=== PATIENT | male | born 1965 | race Caucasian/White ===

== ENCOUNTER 2024-12-18 07:52 | Outpatient (CLI) | payer OTHER, SELFPAY ==
--- OUTSIDE RECORDS SUMMARY | 2024-12-18 07:56 | XMS_ITS | Patient Health Record ---
Author Organization [facility] Address [address] [place] [address] Care Team Providers Care Residential Supervisor Name Role Phone Federico JULES, Darrel Primary Care Provider Un available Dre Garber Unavailable [phone] Carol Herrera Unavailable [phone] Stephania Doss Unavailable [phone] Allergies Allergen (clinical drug ingredient) Drug/Non Drug Allergy documented on EMR Reaction Allergy Type Onset Date Status smallpox vaccine (uncoded) pt. states gave him cowpox Allergy Active Reason For Referral No Information Medications Medication SIG (Take, Route, Frequency, Duration) Notes Start Date End Date Status amLODIPine Besylate 5 MG 1/2 tablet Oral ly Once a day as needed; Duration: 90 days Active Testosterone 30 MG/ACT 1 pump to skin in the morning to the underarm Transdermal Once a day Active Losartan Potassium 50 MG Take 1 tablet b y mouth twice daily; Duration: 90 Active Metoprolol Tartrate 25 MG Take 1 tablet by mouth twice daily with food; Duration: 90 Active Levothyroxine Sodium 50 MCG 1 tablet in the morning on an empty stomach Orally Once a day; Duration: 30 day(s) Active Pantoprazole Sodium 40 MG 1 tablet Orall y Once a day; Duration: 30 day(s) Active Atorvastatin Calcium 20 MG 1 tablet Oral ly Once a day; Duration: 90 days Active Social History Tobacco Use: Social History Observation Description Date Details (start date - stop date) Never Smoker NA - NA Tobacco Use/Smoking Question Answer Notes Are you a nonsmoker Additional Findings: Tobacco Non-User Current no n-smoker Alcohol Screen (Audit-C) Question Answer Notes Did you have a drink containing alcohol in the p ast year? 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 ADLs Smoking: no Alchohol: no Diet: low salt Beverages: 3 cups of coffee morning 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 ADLs Smoking: no Alchohol: no Diet: low salt Beverages: 3 cups of coffee morning 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 ADLs Smoking: no Alchohol: no Diet: low salt Beverages: 3 cups of coffee morning 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 ADLs Smoking: no Alchohol: no Diet: low salt Beverages: 3 cups of coffee morning 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 ADLs Smoking: no Alchohol: no Diet: low salt Beverages: 3 cups of coffee morning 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 ADLs Smoking: no Alchohol: no Diet: low salt Beverages: 3 cups of coffee morning 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 ADLs Smoking: no Alchohol: no Diet: low salt Beverages: 3 cups of coffee morning 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 ADLs Smoking: no Alchohol: no Diet: low salt Beverages: 3 cups of coffee morning 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 ADLs Smoking: no Alchohol: no Diet: low salt Beverages: 3 cups of coffee morning 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 ADLs Smoking: no Alchohol: no Diet: low salt Beverages: 3 cups of coffee morning 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 ADLs Problems Problem Type SNOMED Code ICD Code Onset Dates Problem Status W/U Status Risk Notes Problem Hypertension (12810891) Hypertension, unspecified (401.9) Active confirmed Problem Essential hypertension (38831774) Essential (primary) hypertension (I10) Active confirmed Problem Tachycardia (0207599) Tachycardia, unspecified (R00.0) Active confirmed Problem Chest pain (97825897) Other chest pain (R07.89) Active confirmed Vital Signs Heart Rate 62 /min 03/26/2024 Blood pressure diastolic 72 mm Hg 03/26/2024 Height 6ft in 03/26/2024 Blood pressure systolic 138 mm Hg 03/26/2024 Weight 229 lbs 03/26/2024 BMI 31.05 kg/m2 03/26/2024 Encounters Encounter Location Date Provider Diagnosis [facility] [place] [address] [place] [address] 03/26/2024 Carol Herrera Essential (primary) hypertension I10 and Tachycardia, unspecified R00.0 [facility] [place] [address] [place] [address] 04/24/2024 [facility] [place] [address] [place] [address] 05/12/2024 Stephania Doss [facility] [place] [address] [place] [address] 11/19[facility]2024 [facility] Essential (primary) hypertension I10 Assessments Encounter Date Diagnosis (ICD Code) Assessment Notes Treatment Notes Treatment Clinical Notes Section Notes 03/26/2024 Essential (primary) hypertension (ICD-10 - I10) Controlled. Would continue off amlodipine for now and continue to monitor blood pressure readings. Continue present medications. Patient Educated with: High Blood Pressure (The Basics).pdf (High Blood Pressure (The Basics).pdf) 03/26/2024 Tachycardia, unspecified (ICD-10 - R00.0) -2 week MCT event monitor 08/03-08/17/19: underlying NSR with avg 82 bpm, few APCs, no atrial fibrillation or significant ventricular pauses No recent prolonged palpitations. Continue metoprolol. 11/19/2024 Essential (primary) hypertension (ICD-10 - I10) Plan Of Treatment Next Appt Details Provider Name:Stephania dodd, 03/27/2025 09:00:00 AM, [address], [place], [address], Insurance Providers Payer Name Payer Address Payer Phone Subscriber Number Group Number Insured Name Patient Relationship to Insured Coverage Start Date Coverage End Date [employer] [id number] [place] [address] [id number] Frederick Munson Self - patient is the insured Medical (General) History Medical History History ICD Code GERD HTN- coronary angiography August 2016 nonobstr uctive disease he uses CPAP
--- OUTSIDE RECORDS SUMMARY | 2024-12-18 07:56 | XMS_ITS | Encounter Summary ---
Author Organization [facility] Address [address] [facility] [place] [address] Care Team Providers Care Migratory Farm Hand Name Role Phone Darrel Caballero MD Primary Care Provider Genny Kent DO Unavailable Encounter Details Date Type Department Care Team (Late st Contact Info) Description 05/26/2019 Ophth Exam [facility] [address] [place] [address] Ever Carl MD [address] [facility] DEPT OF OPHTHALMOLOGY [place], [place] Social History Tobacco Use Types Packs/Day Years Used Date Smoking Tobacco: Never Smokeless Tobacco: Never Alcohol Use Standard Drinks/Week Comments Yes 0 (1 standard drink = 0.6 oz pur e alcohol) occ Sex and Gender Information Value Date Recorded Sex Assigned at Not on file Legal Sex Male 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 Answer Date of Assessment Author No 05/24/2019 4:55 AM Nadiya Cody APRN-CNP * Is person blind or have serious difficulty seeing? Answer Date of Assessment Author No 05/24/2019 4:55 AM Nadiya Cody APRN-CNP * Does person have serious difficulty walking/climbing stairs? Answer Date of Assessment Author No 05/24/2019 4:55 AM BLENDER/BRAZE APPLICATOR Kohlmeier , Nadiya, CUSTOMER BUSINESS MANAGER-MULTIPLE PRESSURE RIVETER OPERATOR * Does person have difficulty dressing/bathing? Answer Date of Assessment Author No 05/24/2019 4:55 AM Nadiya Cody APRN-CNP * Does person have difficulty doing errands alone? Answer Date of Assessment Author No 05/24/2019 4:55 AM Nadiya Cody APRN-CNP documented as of this encounter Mental Status * Does person have difficulty concentrating/remembering/making decisions? Answer Entry Date Author No 05/24/2019 4:55 AM Nadiya Cody APRN-CNP documented in this encounter Plan of Treatment Not on file documented as of this encounter Visit Diagnoses Not on filedocumented in this encounter Additional Health Concerns Infection Onset Date Last Indicated Resolved Time COVID-19 Under Investigation 01/06/2020 01/06/2020 01/07/2020 10:37 PM CDT COVID-19 Confirmed 01/06/2020 01/06/2020 0 4:33 AM CDT COVID-19 Under Investigation 05/23/2021 05/23/2021 05/24/2021 12:25 PM BLENDER/BRAZE APPLICATOR COVID-19 Confirmed 05/23/2021 05/23/2021 2 4:33 AM BLENDER/BRAZE APPLICATOR documented as of this encounter Care Teams Migratory Farm Hand Relationship Specialty Start Date End Date Darrel Caballero MD [address] [phone] PCP - General Internal Medicine 07/10/14 Genny Ketn DO [address] [address] Fellow Internal Medicine 06/25/19 documented as of this encounter
--- OUTSIDE RECORDS SUMMARY | 2024-12-18 07:56 | XMS_ITS | Clinical Summary ---
Author Organization [facility] Address [address] [place] [address] Care Team Providers Care Information Systems Architect Name Role Phone Darrel Caballero MD Primary Care Provider Genny Kent DO Unavailable Source Comments [facility],non-owned Affiliates and Associated Physician Practices is amultiple site organization consisting of ambulatory clinics and hospital sitesin [place], [place], [place] and [place]. This disclosure is being madepursuant to the Care Everywhere program and may not contain all information available regarding this patient. Last updated 18.[facility] [employer] Allergies Active Allergy Reactions Criticality Noted Date Comments Small Pox Vaccine Other High 07/13/2014 REACTED-RECEIVED ANGELES POX Medications * Be aware that medications may not be up to date on this document. Alwaysverify current medications with the patient. losartan (COZAAR) 50 MG tablet Take 1 (one) tablet by mouth once daily Active pantoprazole EC (PROTONIX) 40 MG tablet Take 1 tablet by mouth once daily 30 tablet 9 Active acetaminophen (TYLENOL) 500 MG tablet Take 1 (one) tablet by mouth every 4 hours as needed for Fever or Pain Maximum allowable Acetaminophen amount = 4 Grams (4000 mg) / 24 hours. Active amLODIPine (Norvasc) 5 MG tablet 1 TABLET ONCE DAILY IF BLOOD PRESSURE IS GREATER THAN 130/85 1 Active metoprolol tartrate IR (Lopressor) 25 MG tablet Take 1 (one) tablet by mouth 2 times daily Active levothyroxine (Synthroid) 75 MCG tablet Take 1 (one) tablet by mouth daily before breakfast Active hydrocortisone (Cortef) 5 MG tablet Take 1 (one) tablet by mouth once daily as needed Active glycopyrrolate (Robinul) 1 MG tablet Take 1 (one) tablet by mouth once daily as needed Active atorvastatin (Lipitor) 20 MG tablet Take 1 (one) tablet by mouth at bedtime Active Testosterone (Axiron) 30 MG/ACT solution Apply to affected area once daily Apply 2 pumps once daily Active azithromycin (Zithromax) 250 MG tabletIndicatio ns:Upper respiratory tract infection, unspecified type 2 tablets on day 1, 1 tablet daily on days 2-5. 6 tablet 4 Active Additional Information Patient not taking.Reported on 04/30/2024 cephalexin (Keflex) 500 MG capsuleIndicati ons:Laceration of left thumb without foreign body without damage to nail, initial encounter Take 1 (one) capsule by mouth 3 times daily 30 capsule Active Additional Information Patient not taking.Reported on 05/12/2024 Active Problems Problem Noted Date Diagnosed Date Other chest pain 10/10/2022 Lightheadedness 10/10/2022 Pituitary mass 05/22/2019 Acute pansinusitis 05/21/2019 Acute nonintractable headache 05/21/2019 Coronary artery disease, non-occlusive 9 Dyslipidemia 07/03/2018 Benign hypertension 07/03/2018 Preoperative examination Resolved Problems Problem Noted Date Diagnosed Date Resolved Date Hyponatremia 05/21/2019 05/27/2019 Encounters Date Type Department Care Team Description 09/18/2024 2:30 PM CDT - 09/18/2024 11:59 PM CDT Hospital Encounter [facility] Health Imaging Services - CT Scan [address] [id number] Darrel Caballero MD Discharge Disposition: Home or Self Care from Last 3 Months Immunizations Immunization Administration Dates Next Due DPT 11/16/1990 TDAP (7yrs+) 04/30/2024 Family History Medical History Relation Name Comments Heart Disease Father Hypertension Maternal Grandfather Hypertension Maternal Grandmother Hypertension Mother Relation Name Status Comments Father Alive Maternal Grandfather Maternal Grandmother Mother Alive Paternal Grandfather Paternal Grandmother Sister 1 Alive Sister 2 Alive Social History Tobacco Use Types Packs/Day Years Used Date Smoking Tobacco: Never Smokeless Tobacco: Never Tobacco Cessation:Counseling Given: Not Answered Alcohol Use Standard Drinks/Week Comments Yes 0 (1 standard drink = 0.6 oz pur e alcohol) rare AUDIT-C Answer Date Recorded Q1: How often do you have a drink containing alcohol? Never 10/10/2022 Q2: How many drinks containi ng alcohol do you have on a typical day when you are drinking? Patient does not drink Q3: How often do you have si x or more drinks on one occasion? Never 10/10/2022 PHQ-2 Answer Date Recorded Patient Health Questionnaire-2 Score 0 05/12/2024 Sex and Gender Information Value Date Recorded Sex Assigned at Not on file Legal Sex Male 6:31 PM [employer] Gender Identity Not on file Sexual Orientation Not on file Last Filed Vital Signs Vital Sign Reading Time Taken Comments Blood Pressure 138/78 05/12/2024 8:35 AM [employer] Pulse 72 05/12/2024 8:35 AM [employer] Temperature 36.8 C (98.3 F) 05/12/2024 8:35 AM [employer] Respiratory Rate 18 05/17/2023 9:35 AM [employer] Oxygen Saturation 98% 05/12/2024 8:35 AM [employer] Inhaled Oxygen Concentration 21% 10/11/2022 5 :01 AM CDT Weight 104.2 kg (229 lb 12.8 oz) 04/30/2024 5:03 PM [employer] Height 182.9 cm (6') 05/17/2023 7:41 AM [employer] Body Mass Index 31.17 05/17/2023 7:41 AM [employer] Plan of Treatment Health Maintenance Due Date Last Done Comments COLOGUARD (AGES 45-75) - COLON CA SCREENING 1967 CT COLONOGRAPHY - COLON CA SCREENING 1967 FIT - COLON CA SCREENING 1967 FLEX SIG - COLON CA SCREENING 1967 HIV SCREENING 12/10/1982 HEPATITIS C SCREENING 12/06/1985 HEPATITIS B VACCINE (1 of 3 - 19+ 3-dose series) 12/10/1986 PNEUMOCOCCAL VACCINE 50+ (1 of 1 - PCV) 12/10/2017 ZOSTER VACCINE (1 of 2) 12/10/2017 COVID-19 VACCINE ( season) 2024 08/07/2020, 07/10/2020 DEPRESSION SCREENING 05/14/2024 02/29/2024 INFLUENZA VACCINE (#1) 2025 SCREENING FOR DIABETES 03/21/2026 3, 03/21/2023, 03/21/2023, Additional history exists COLON MONITORING 02/07/2029 02/07/2019, 09/2015, 12/17/2015 COLONOSCOPY - COLON CA SCREENING 02/07/2029 02/07/2019, 12/17/2015, 12/17/2015 Colorectal Cancer Screening 02/07/2029 DTAP/TDAP/TD VACCINES (3 - Td or Tdap) 04/30/2034 04/30/2024, 11/16/1990 HIB VACCINE Aged Out No longer eligi ble based on patient's age to complete this topic HPV VACCINE Aged Out No longer eligi ble based on patient's age to complete this topic MENINGOCOCCAL (Group B) VACCINE SHARED DECISION-MAKING Aged Out No longer eligible based on patient's age to complete this topic MENINGOCOCCAL GROUPS A/C/Y/W VACCINE Aged Out No longer eligible based on patient's age to complete this topic Procedures Procedure Name Priority Date/Time Associated Diagnosis Comments CT ABDOMEN PELVIS WWO CONTRAST STAT 09/18/2024 3:29 PM CDT RLQ abdominal pain Nausea Diarrhea in adult patient BASIC METABOLIC PANEL (CALCIUM TOTAL) AM Draw 10/11/2022 2:16 AM CDT Other chest pain Lightheadedness ENDOSCOPY, COLON, DIAGNOSTIC Routine 12/17/2015 7:54 AM CDT from Last 3 Months or Most Recently Relevant to Health Maintenance Results * CT [place] [id number] (09/18/2024 3:29 PM CDT) Anatomical Region Laterality Modality Abdomen, Pelvis Computed Tomogra phy 09/18/2024 3:51 PM CDT Impressions 09/18/2024 4:07 PM CDT IMPRESSION: 1.With and without contrast CT scan abdomen pelvis shows this to be a nonfasting study. There is no bowel or urinary obstructive or inflammatory process evident. 2.No generalized colonic wall thickening to give CT findings to suggest colitis. This examination is not sensitive in assessment process for mucosal pathology. Edited by Trudy Jeffries on 09/18/2024 4:06 PM 95 > Interpreting Provider: Swapnil Little MD on 09/18/2024 4:07 PM Narrative 09/18/2024 4:07 PM CDT 95 PROCEDURE: CT ABDOMEN PELVIS WWO CONTRAST DATE/TIME OF EXAM: 09/18/2024 3:30 PM CLINICAL INFORMATION: None relevant/not provided if blank. Indication: R10.31: RLQ abdominal pain R11.0: Nausea R19.7: Diarrhea in adult patient Additional History: COMPARISON: 02/04/2022. TECHNIQUE: CT of the abdomen and pelvis without contrast was performed utilizing standard protocol. CT dose reduction technique was used, including Automated Exposure Control. Oral contrast had been administered. IV CONTRAST: IOPAMIDOL 61% IV SOLN: 95 mL FINDINGS: The lung bases are clear. There is no pericardial or pleural effusion. Nonfasting stomach. No pneumoperitoneum. There may be a thin pericardial calcification adjacent to the right atrium suggesting prior pericardial inflammatory process. No pericardial fluid. No calcified gallstones or gallbladder wall thickening. No generalized gastric wall thickening. This examination is not sensitive in assessment process for mucosal pathology. No peripancreatic inflammatory change. No pancreatic tail atrophy. No adrenal enlargement. The kidneys show no hydronephrosis. No stone down the pathway of either ureter. No retroperitoneal adenopathy. No small bowel distention or small bowel transition zone. No generalized small bowel wall thickening. Small pericecal lymph nodes. The appendix is normal in caliber. No pericolonic inflammatory change. Postcontrast images show the kidneys to enhance normally. The spleen is normal in length. No discrete liver mass lesion. No retroperitoneal adenopathy. No mesenteric adenopathy. Delayed images show no hydronephrosis. No hydroureter. No extravasated colonic contrast material. In the pelvis, the bladder wall thickness is felt normal for the degree of decompression. Mild prostatic hypertrophy. No gross rectal wall thickening. No inguinal, obturator, or iliac chain adenopathy. Lumbar facet arthrosis. No aggressive appearing bone destructive process. No pars defects. Procedure Note Swapnil Little MD - 09/18/2024 95 PROCEDURE: CT ABDOMEN PELVIS WWO CONTRAST DATE/TIME OF EXAM: 09/18/2024 3:30 PM CLINICAL INFORMATION: None relevant/not provided if blank. Indication: R10.31: RLQ abdominal pain R11.0: Nausea R19.7: Diarrhea in adult patient Additional History: COMPARISON: 02/04/2022. TECHNIQUE: CT of the abdomen and pelvis without contrast was performed utilizing standard protocol. CT dose reduction technique was used, including Automated ExposureControl. Oral contrast had been administered. IV CONTRAST: IOPAMIDOL 61% IV SOLN: 95 mL FINDINGS: The lung bases are clear. There is no pericardial or pleural effusion. Nonfasting stomach. No pneumoperitoneum. There may be a thin pericardial calcificationadjacent to the right atrium suggesting prior pericardial inflammatory process.No pericardial fluid. No calcified gallstones or gallbladder wall thickening. No generalized gastric wall thickening. This examination is not sensitive in assessment process for mucosal pathology. No peripancreatic inflammatory change. No pancreatic tail atrophy. No adrenal enlargement. The kidneys show no hydronephrosis. No stone down the pathway of either ureter. No retroperitoneal adenopathy. No small bowel distention or small bowel transition zone. No generalized small bowel wall thickening. Small pericecal lymph nodes. The appendix is normal in caliber. No pericolonic inflammatory change. Postcontrast images show the kidneys to enhance normally. The spleen is normal in length. No discrete liver mass lesion. No retroperitoneal adenopathy. No mesenteric adenopathy. Delayed images show no hydronephrosis. No hydroureter. No extravasated colonic contrast material. In the pelvis, the bladder wall thickness is felt normal for the degreeof decompression. Mild prostatic hypertrophy. No gross rectal wallthickening. No inguinal, obturator, or iliac chain adenopathy. Lumbar facet arthrosis. No aggressive appearing bone destructiveprocess. No pars defects. IMPRESSION: 1.With and without contrast CT scan abdomen pelvis shows this to be a nonfasting study. There is no bowel or urinary obstructive orinflammatory process evident. 2.No generalized colonic wall thickening to give CT findings to suggest colitis. This examination is not sensitive in assessment process for mucosal pathology. Edited by Trudy Jeffries on 09/18/2024 4:06 PM 95 > Interpreting Provider: Swapnil Little MD on 09/18/2024 4:07 PM us Chelsea Caballero [employer] ASSOCIATE-EMB[employer]ED FIRMWARE DEVELOPER CT ORDERABLES F inal Result * (ABNORMAL) BASIC METABOLIC PANEL (CALCIUM TOTAL) (10/11/2022 2:16 AM CDT) [facility] Glucose 109 70 - 125 mg/dL 10/11/2022 2:59 AM CDT [facility] Sodium 138 136 - 145 mmol/L 10/11/2022 2:59 AM CDT [facility] Potassium 3.6 3.4 - 5.1 mmol/L 10/11/2022 2:59 AM CDT [facility] Chloride 108(H) 98 - 107 mmol/L 10/11/2022 2:59 AM CDT [facility] CO2 22 22 - 29 mmol/L 10/11/2022 2:59 AM CDT [facility] Calcium 8.53 8.4 - 10.2 mg/dL 10/11/2022 2:59 AM CDT [facility] Anion Gap 12 6 - 16 mmol/L 10/11/2022 2:59 AM CDT [facility] BUN 13.0 8.4 - 25.7 mg/dL 10/11/2022 2:59 AM CDT [facility] Creatinine 1.14 0.72 - 1.25 mg/dL 10/11/2022 2:59 AM CDT [facility] eGFR 76(L) >90 mL/min/1.7 3m2 10/11/2022 2:59 AM CDT [facility] Comment:The GFR result was c alculated using the updated CKD-EPI Creatinine Equation (2020). Blood BLOOD SPECIMEN / Unknown Lab Venipuncture / Unknown 10/11/2022 2:16 AM CDT 10/11/2022 2:36 AM CDT Grey Purdy MD LAB - CHEMISTRY ORDERABLES Final Result Performing Organization Address City/State/[facility] Co de Phone Number [facility] [address] [place] [address], [facility] from Last 3 Months or Most Recently Relevant to Health Maintenance Insurance [place] [id number] [facility] [employer] [facility] GENERIC Member Subscriber Plan / Payer (Ef fective 2024-Present) Name:Frederick Munson Member ID:Not on file Relation to Subscriber:Employee Name:[employer] Subscriber ID:[id number] (Work) Address: [address] [place] [address] Payer ID:Not on file Group ID:Not on file Type:Worker's Comp Address: [address] [address] [place] [address] Advance Directives * Full Code (Latest Code Status on File) Date Activated Date Inactivated Comments 10/10/2022 8:17 PM 10/11/2022 4:32 PM * Full Code Date Activated Date Inactivated Comments 05/24/2019 12:10 AM 05/27/2019 4:28 PM * Full Code Date Activated Date Inactivated Comments 05/21/2019 9:49 PM 05/23/2019 11:53 PM * Full Code Date Activated Date Inactivated Comments 09/08/2016 8:33 AM 09/08/2016 1:09 PM * Full Code Date Activated Date Inactivated Comments 09/08/2016 7:14 AM 09/08/2016 8:33 AM Care Teams Information Systems Architect Relationship Specialty Start Date End Date Darrel Caballero MD [address] [address] PCP - General Internal Medicine 07/10/14 Genny Kent DO [address] [address] Fellow Internal Medicine 06/25/19
--- OUTSIDE RECORDS SUMMARY | 2024-12-18 07:56 | XMS_ITS | Clinical Summary ---
Author Organization [facility] Address [address] [place] [address] Care Team Providers Care Health Care Assistant Name Role Phone Darrel Caballero MD Primary Care Provider [phone] Allergies Active Allergy Reactions Criticality Noted Date Comments Smallpox Virus Vaccine Live Other (see comment) High 07/13/2014 REACTED-RECEIVED ANGELES POX Medications pantoprazole EC (PROTONIX) 40 MG tablet Take 1 tablet (40 mg total) by mouth daily. 2 Active metoprolol tartrate (LOPRESSOR) 25 MG tablet Take 1 tablet (25 mg total) by mouth 2 (two) times daily with meals. Active losartan (COZAAR) 50 MG tablet Take 1 tablet (50 mg total) by mouth 2 (two) times daily. Active hydroCHLOROthia zide (MICROZIDE) 12.5 MG tablet Take 1 tablet (12.5 mg total) by mouth as needed. 3 Active atorvastatin (LIPITOR) 20 MG tablet Take 1 tablet (20 mg total) by mouth nightly at bedtime. Active amLODIPine (NORVASC) 5 MG tablet TAKE 1/2 TABLET BY MOUTH ONCE DAILY NEEDED 3 Active glycopyrrolate (ROBINUL) 1 MG tablet Take 1 tablet (1 mg total) by mouth as needed. 3 Active Testosterone 30 MG/ACT SolutionIndicat ions:Pituitary adenoma (CMS/HCC HHS/HCC),Hypogo nadism in male APPLY 2 PUMPS TOPICALLY ONTO SKIN ONCE DAILY 75 mL 3 3 Active Active Problems Problem Noted Date Diagnosed Date Hypothyroidism (acquired) 09/18/2022 Secondary adrenal insufficiency ([facility]) 2022 Hypogonadism in male 09/18/2022 Primary hypertension 03/08/2020 Pituitary adenoma ([facility]/HCC [facility]) 11/21/2019 Coronary artery disease, non-occlusive 9 Dyslipidemia 07/03/2018 Resolved Problems Problem Noted Date Diagnosed Date Resolved Date Hyperlipidemia 03/08/2020 09/18/2022 Pituitary mass ([facility]) 05/22/201912/2022 Overview (09/15/2022): Added automatically from request for surgery [id number] Acute nonintractable headache 05/21/2019 09/18/2022 Acute pansinusitis 05/21/2019 Benign hypertension 07/03/2018 09/19/19 23 Immunizations Immunization Administration Dates Next Due Dtp 11/16/1990 MODERNA COVID-19 (12+) MRNA, LNP-S, PF, 100 MCG/ 0.5 ML DOSE 08/07/2020,07/10/2020 Family History Medical History Relation Comments Heart Disease Father Relation Status Comments Father Social History Tobacco Use Types Packs/Day Years Used Date Smoking Tobacco: Never Smokeless Tobacco: Never Tobacco Cessation:Counseling Given: No Alcohol Use Standard Drinks/Week Comments Never 0 (1 standard drink = 0.6 oz pur e alcohol) PHQ-2 Answer Date Recorded Patient Health Questionnaire-2 Score 0 09/18/2022 Sex and Gender Information Value Date Recorded Sex Assigned at Not on file Legal Sex Male 4:15 PM [employer] Gender Identity Not on file Sexual Orientation Not on file Last Filed Vital Signs Vital Sign Reading Time Taken Comments Blood Pressure 126/77 03/28/2023 12:13 PM [employer] Pulse 66 03/28/2023 10:50 AM [employer] Temperature 36.6 C (97.8 F) 09/18/2022 3:37 PM CDT Respiratory Rate 20 09/18/2022 3:37 PM CDT Oxygen Saturation 98% 03/28/2023 10: 50 AM [employer] Inhaled Oxygen Concentration - - Weight 106.9 kg (235 lb 9.6 oz) 023 10:50 AM [employer] Height 182.9 cm (6') 09/18/2022 3:37 PM CDT Body Mass Index 31.95 09/18/2022 3:37 PM CDT Plan of Treatment Health Maintenance Due Date Last Done Comments ASCVD Statin 1965 Colorectal Cancer Screening Colonoscopy (10 Years) 1967 Annual Physical 12/10/1970 Hepatitis C 12/10/1985 Hepatitis B Vaccines (1 of 3 - 19+ 3-dose series) 12/10/1986 Pneumococcal Vaccine: 50+ Years (1 of 2 - PCV) 12/10/1986 DTaP, Tdap and Td Vaccines ( 1 - Tdap) 11/17/1990 11/16/1990 Zoster Vaccines (1 of 2) 12/10/2017 COVID-19 Vaccine (3 - 2023-2 5 season) 2024 08/07/2020, 07/10/2020 ASCVD LDL 03/21/2024 03/21/2023 Meningococcal B Vaccine Aged Out No l onger eligible based on patient's age to complete this topic Meningococcal Vaccine Aged Out No rodolfo pamela eligible based on patient's age to complete this topic RSV Immunizations Under 20 Months Aged Out No longer eligible b ased on patient's age to complete this topic Procedures Procedure Name Priority Date/Time Associated Diagnosis Comments LIPID PANEL Routine 03/21/2023 6:56 AM [employer] Pituitary adenoma from Last 3 Months or Most Recently Relevant to Health Maintenance Results * (ABNORMAL) LIPID PANEL (03/21/2023 6:56 AM [employer]) CHOLESTEROL 153 <200 MG/DL 03/21/2023 8:21 AM [facility] TRIGLYCERIDES 172(H) <150 MG/DL 03/21/2023 8:21 AM [facility] HDL 51 >40.0 MG/DL 03/21/2023 8:21 AM [facility] LDL (CALCULATED) 68 <100 MG/DL 03/21/2023 8:21 AM [facility] NON HDL CHOLESTEROL 102 <130 MG/DL 03/21/2023 8:21 AM [employer] [facility] Comment: NOTE: WHEN THE TRIGLYCERIDES ARE >200 mg/dL, NON HDL C IS A SECONDARY TARGET OF THERAPY, WITH A GOAL 30 mg/dL HIGHER THAN THE IDENTIFIED LDL C GOAL. CHOL/HDL RATIO 3.0 0.0 - 4.5 03/21/2023 8:21 AM [employer] [facility] VLDL CALCULATION 34 5 - 55 MG/DL 03/21/2023 8:21 AM [employer] [facility] LIPID INTERPRETATION 03/21/2023 8:21 AM [employer] [facility] Comment: NIH CONCENSUS REPORT RECOMMENDATIONS: ADULT CHILD LOW RISK: CHOLESTEROL <200 <170 TRIGLYCERIDE <150 --- HDL >=60 --- LDL <100 <110 BORDERLINE: CHOLESTEROL 200-239 170-199 TRIGLYCERIDE 150-199 --- HDL 40-59 --- LDL 100-159 110-129 HIGH RISK: CHOLESTEROL >=240 >=200 TRIGLYCERIDE >=200 --- HDL <40 --- LDL >=160 >=130 03/21/2023 6:56 AM [employer] Dre Wen MD LABORATORY Final Result [facility] [address] [place] [address], from Last 3 Months or Most Recently Relevant to Health Maintenance Insurance [employer] Care Teams Health Care Assistant Relationship Specialty Start Date End Date Darrel Caballero MD [address] [address] PCP - General INTERNAL MEDICINE 09/18/22
--- OUTSIDE RECORDS SUMMARY | 2024-12-18 07:56 | XMS_ITS | Patient Health Record ---
Author Organization [facility] Address [address] [place] [address] Care Team Providers Care Load Builder Name Role Phone Darrel Caballero MD Primary Care Provider Un available Krystyna Hdz Unavailable [phone] Allergies No Known Allergies Reason For Referral No Information Medications Medication SIG (Take, Route, Frequency, Duration) Notes Start Date End Date Status Metoprolol Tartrate 25 MG Oral; Duration: 90 Days Active Euthyrox 75 MCG Oral; Duration: 90 Days Active Losartan Potassium 50 MG TAKE 1 TABLET B Y MOUTH TWICE DAILY Oral; Duration: 90 Days Active amLODIPine Besylate 5 MG TAKE 1/2 (ONE-H FPC) TABLET BY MOUTH ONCE DAILY FOR 7 DAYS, THEN INCREASE TO 1 TABLET ONCE DAILY IF BLOOD PRESSURE IS GREATER THAN 130/85 Oral; Duration: 90 Days Active Pantoprazole Sodium 20 MG TAKE 1 TABLET BY MOUTH ONCE DAILY NEEDED Oral; Duration: 90 Days Active Atorvastatin Calcium 20 MG TAKE 1 TABLET BY MOUTH ONCE DAILY AT BEDTIME Oral; Duration: 90 Days Active Hydrocortisone Activ e Plan Of Treatment Pending Test Test Name Order Date X ray : Ankle, left 2 views 11/09/2022 X ray : Foot, left 3v 11/09/2022 Insurance Providers Payer Name Payer Address Payer Phone Subscriber Number Group Number Insured Name Patient Relationship to Insured Coverage Start Date Coverage End Date [employer] PPO [address] [place], [place] [id number] Frederick Munson Self - patient is the insured Medical (General) History Medical History History ICD Code High Blood pressure High Cholesterol Heartburn Thyroid Disorder Pituitary Adenoma Surgical History Surgery Date(Month/Year) Tumor removed Pituitary Gland Transsphenoid
[2024-12-18] MEDS: COSYNTROPIN 0.25 MG/ML VIAL IM (09:50)
[2024-12-18 12:00] LABS: Cortisol 60 Minute 15.80 ug/dL
== END 2024-12-18 07:53 | disposition home or self-care (01) ==
PROVIDERS: Visit Provider Internal Medicine
DX: E34.9 Endocrine disorder, unspecified (principal); E07.9 Disorder of thyroid, unspecified; D35.2 Benign neoplasm of pituitary gland; E03.8 Other specified hypothyroidism; E29.1 Testicular hypofunction
CPT/HCPCS: 36415; 82533; 96372; J0834

== ENCOUNTER 2025-03-16 08:46 | Outpatient (CLI) | payer OTHER, SELFPAY ==
--- OUTSIDE RECORDS SUMMARY | 2025-03-16 09:08 | XMS_ITS | Patient Health Record ---
Author Organization [facility] Address [address] [place] [address] Care Team Providers Care South Asian History Professor Name Role Phone Federico JULES, Darrel Primary Care Provider Un available Dre Garber Unavailable [phone] Carol Herrera Unavailable [phone] Stephania Doss Unavailable [phone] Allergies Allergen (clinical drug ingredient) Drug/Non Drug [...] the underarm Transdermal Once a day Active Metoprolol Tartrate 25 MG 1 tablet with food Orally Twice a day; Duration: 90 days Active Losartan Potassium 50 MG Take 1 tablet b y mouth twice daily; Duration: 90 Active Levothyroxine Sodium 50 MCG [...] coffee morning Lives with: Employed: works at [employer] Activity: independent in ADLs Smoking: no Alchohol: no Diet: low salt Beverages: 3 cups of coffee morning Lives with: Employed: works at [employer] Activity: independent in ADLs Smoking: no Alchohol: no Diet: low salt Beverages: 3 cups of coffee morning Lives with: Employed: works at [employer] Activity: independent in ADLs Smoking: no Alchohol: no Diet: low salt Beverages: 3 cups of coffee morning Lives with: Employed: works at [employer] Activity: independent in ADLs Smoking: no Alchohol: no Diet: low salt Beverages: 3 cups of coffee morning Lives with: Employed: works at [employer] Activity: independent in ADLs Smoking: no Alchohol: no Diet: low salt Beverages: 3 cups of coffee morning Lives with: Employed: works at [employer] Activity: independent in ADLs Smoking: no Alchohol: no Diet: low salt Beverages: 3 cups of coffee morning Lives with: Employed: works at [employer] Activity: independent in ADLs Smoking: no Alchohol: no Diet: low salt Beverages: 3 cups of coffee morning Lives with: Employed: works at [employer] Activity: independent in ADLs Smoking: no Alchohol: no Diet: low salt Beverages: 3 cups of coffee morning Lives with: Employed: works at [employer] Activity: independent in ADLs Smoking: no Alchohol: no Diet: low salt Beverages: 3 cups of coffee morning Lives with: Employed: works at [employer] Activity: independent in ADLs Smoking: no Alchohol: no Diet: low salt Beverages: 3 cups of coffee morning Lives with: Employed: works at [employer] Activity: independent in ADLs Smoking: no Alchohol: no Diet: low salt Beverages: 3 cups of coffee morning Lives with: Employed: works at [employer] Activity: independent in ADLs Smoking: no Alchohol: no Diet: low salt Beverages: 3 cups of coffee morning Lives with: Employed: works at [employer] Activity: independent in ADLs Smoking: no Alchohol: no Diet: low salt Beverages: 3 cups of coffee morning Lives with: Employed: works at [employer] Activity: independent in ADLs Problems Problem Type SNOMED Code ICD Code Onset Dates Problem Status W/U Status Risk Notes Problem Hypertension (82865574) Hypertension, unspecified (401.9) Active confirmed Problem Essential hypertension (41368606) Essential (primary) hypertension (I10) Active confirmed Problem Tachycardia (7974809) Tachycardia, unspecified (R00.0) Active confirmed Problem Chest pain (44538025) Other chest pain (R07.89) Active confirmed Vital Signs Heart Rate 62 /min 03/26/2024 Blood pressure diastolic 72 mm Hg 03/26/2024 Height 6ft in 03/26/2024 Blood pressure systolic 138 mm Hg 03/26/2024 Weight 229 lbs 03/26/2024 BMI 31.05 kg/m2 03/26/2024 Encounters Encounter Location Date Provider Diagnosis [facility] [place] [address] [place] [address] 03/26/2024 Carol Herrera Essential (primary) hypertension I10 and Tachycardia, unspecified R00.0 [facility] [place] [address] [place] [address] 04/24/2024 [facility] [place] [address] [facility] [place] [address] 05/12/2024 Stephania Doss [facility] [place] [address] [place] [address] 11/19/2024 [facility] Essential (primary) hypertension I10 [facility] [place] [address] [place] [address] 01/09/2025 Stephania Doss Assessments Encounter Date Diagnosis (ICD Code) Assessment [...] Of Treatment Next Appt Details Provider Name:Stephania Goldstein ju, 03/27/2025 09:00:00 AM, [address] [facility], [place], [address], Insurance Providers Payer Name Payer Address Payer Phone Subscriber Number Group Number Insured Name Patient Relationship to Insured Coverage Start Date Coverage End Date [employer] [address] [place] [address] [id number] Frederick Munson Self - patient is the insured Medical (General) History Medical History History ICD Code GERD HTN- coronary angiography August 2016 nonobstr uctive disease he uses CPAP
--- OUTSIDE RECORDS SUMMARY | 2025-03-16 09:08 | XMS_ITS | Encounter Summary ---
Author Organization [facility] Address [address] [place] [address] Care Team Providers Care Plumbing Hardware Assembler Name Role Phone Darrel Caballero MD Primary Care Provider Genny Kent DO Unavailable Encounter Details Date Type Department Care Team (Late st Contact Info) Description 05/26/2019 Ophth Exam [facility] [address] [place] [address] Ever Carl MD [address] [facility] [address] DEPT OF OPHTHALMOLOGY [place], [place] Social History Tobacco Use Types Packs/Day Years Used Date Smoking Tobacco: Never Smokeless Tobacco: Never Alcohol Use Standard Drinks/Week Comments Yes 0 (1 standard drink = 0.6 oz pur e alcohol) occ Sex and Gender Information Value Date Recorded Sex Assigned at Not on file Legal Sex Male 6:31 PM PASSPORT APPLICATION EXAMINER Gender Identity Not on file Sexual Orientation Not on file documented as of this encounter Functional Status * Functional and Cognitive Status Question Answer Date of Assessment Author Is person deaf or have elbert us hearing difficulty? No 05/27/2019 2:42 PM PASSPORT APPLICATION EXAMINER Katheryn Chavez APRN -CNP Is person blind or have seri ous difficulty seeing? No 05/27/2019 2:42 PM PASSPORT APPLICATION EXAMINER Katheryn Chavez APRN -CNP Does person have serious difficulty walking/climbing stairs? No 05/27/2019 2:42 PM PASSPORT APPLICATION EXAMINER Katheryn Chavez APRN -CNP Does person have difficulty dressing/bathing? No 05/27/2019 2:42 PM PASSPORT APPLICATION EXAMINER Katheryn Chavez APRN -UNDERBASTER Does person have difficulty doing errands alone? No 05/27/2019 2:42 PM PASSPORT APPLICATION EXAMINER Katheryn Chavez APRN -UNDERBASTER Does person have difficulty concentrating/remembering/making decisions? No 05/27/2019 2:42 PM PASSPORT APPLICATION EXAMINER Katheryn Chavez APRN -UNDERBASTER * Is person deaf or have serious hearing difficulty? Answer Date of Assessment Author No 05/24/2019 4:55 AM Nadiya Cody APRN-DERECK * Is person blind or have serious difficulty seeing? Answer Date of Assessment Author No 05/24/2019 4:55 AM Nadiya Cody APRN-DERECK * Does person have serious difficulty walking/climbing stairs? Answer Date of Assessment Author No 05/24/2019 4:55 AM Nadiya Cody APRN-DERECK * Does person have difficulty dressing/bathing? Answer Date of Assessment Author No 05/24/2019 4:55 AM Nadyia Cody APRN-CNP * Does person have difficulty [...] Under Investigation 05/23/2021 05/23/2021 05/24/2021 12:25 PM PASSPORT APPLICATION EXAMINER COVID-19 Confirmed 05/23/2021 05/23/2021 2 4:33 AM PASSPORT APPLICATION EXAMINER documented as of this encounter Care Teams Plumbing Hardware Assembler Relationship Specialty Start Date End Date Darrel Caballero MD [address] [facility] [address] [place] [address] PCP - General Internal Medicine 07/10/14 Genny Kent DO [address] [address] Fellow Internal Medicine 06/25/19 documented as of this encounter
--- OUTSIDE RECORDS SUMMARY | 2025-03-16 09:09 | XMS_ITS | Patient Health Record ---
Author Organization [facility] Address [address] [place] [address] Care Team Providers Care Still Runner Name Role Phone Darrel Caballero MD Primary Care Provider Un available Krystyna Hdz Unavailable [phone] Allergies No Known Allergies Reason For Referral No Information Medications Medication SIG (Take, Route, Frequency, Duration) Notes Start Date End Date Status Metoprolol Tartrate 25 MG Oral; Duration: 90 Days Active Euthyrox 75 MCG Oral; Duration: 90 Days Active Losartan Potassium 50 MG TAKE 1 TABLET B Y MOUTH TWICE DAILY Oral; Duration: 90 Days Active amLODIPine Besylate 5 MG TAKE 1/2 (ONE-H KRYSTLE) TABLET BY MOUTH ONCE DAILY FOR 7 [...] Coverage End Date [employer] PPO [address] [place], [place] [id number] Frederick Munson Self - patient is the insured Medical (General) History Medical History History ICD Code High Blood pressure High Cholesterol Heartburn Thyroid Disorder Pituitary Adenoma Surgical History Surgery Date(Month/Year) Tumor removed Pituitary Gland Transsphenoid
--- OUTSIDE RECORDS SUMMARY | 2025-03-16 09:09 | XMS_ITS | Clinical Summary ---
Author Organization [facility] Address [address] [facility] [place] [address] Care Team Providers Care Cylindrical Mixer Name Role Phone Darrel Caballero MD Primary Care Provider Genny Kent DO Unavailable Source Comments [facility],non-owned Affiliates and Associated Physician Practices is amultiple site organization consisting of ambulatory clinics and hospital sitesin [place], [place], [place] and [place]. This disclosure is being madepursuant to the Care Everywhere program and may not contain all information available regarding this patient. Last updated 18.[facility] Allergies Active Allergy Reactions Criticality Noted Date [...] Encounters Date Type Department Care Team Description 01/16/2025 3:00 PM CDT - 01/16/2025 11:59 PM CDT Hospital Encounter [facility] - MRI [address] [place] [address] Carlos Manuel Naik MD Discharge Disposition: Home or Self Care [...] on file Legal Sex Male 6:31 PM SAUSAGE TIER Gender Identity Not on file Sexual Orientation Not on file Last Filed Vital Signs Vital Sign Reading Time Taken Comments Blood Pressure 138/78 05/12/2024 8:35 AM SAUSAGE TIER Pulse 72 05/12/2024 8:35 AM SAUSAGE TIER Temperature 36.8 C (98.3 F) 05/12/2024 8:35 AM SAUSAGE TIER Respiratory Rate 18 05/17/2023 9:35 AM SAUSAGE TIER Oxygen Saturation 98% 05/12/2024 8:35 AM SAUSAGE TIER Inhaled Oxygen Concentration 21% 10/11/2022 5 :01 AM CDT Weight 104.2 kg (229 lb 12.8 oz) 04/30/2024 5:03 PM SAUSAGE TIER Height 182.9 cm (6') 05/17/2023 7:41 AM SAUSAGE TIER Body Mass Index 31.17 05/17/2023 7:41 AM SAUSAGE TIER Plan of Treatment Health Maintenance Due Date [...] 12/10/2017 ZOSTER VACCINE (1 of 2) 12/10/2017 DEPRESSION SCREENING 05/14/2024 02/29/2024 COVID-19 VACCINE ( - season) 2025 08/07/2020, 07/10/2020 INFLUENZA VACCINE (#1) 2025 SCREENING FOR DIABETES 10/11/2025 , 10/10/2022, 02/04/2022, Additional history exists COLON MONITORING 02/07/2029 02/07/2019, [...] Procedure Name Priority Date/Time Associated Diagnosis Comments MRI PITUITARY ONLY WWO CONTR Routine 01/16/2025 3:50 PM CDT Endocrine disorder BASIC METABOLIC PANEL (CALCIUM TOTAL) AM Draw 10/11/2022 2:16 AM CDT Other chest pain Lightheadedness ENDOSCOPY, COLON, DIAGNOSTIC Routine 12/17/2015 7:54 AM CDT from Last 3 Months or Most Recently Relevant to Health Maintenance Results * MRI PITUITARY ONLY WWO CONTRAST [id number] (01/16/2025 3:50 PM CDT) Anatomical Region Laterality Modality Head Magnetic Resonan ce 01/16/2025 4:07 PM CDT Impressions 01/16/2025 4:41 PM CDT IMPRESSION: Recurrent pituitary mass. No optic chiasm mass effect. No cavernous sinus invasion evident. Differential is primarily recurrence of the previously defined mass from 2020. Edited by Adore Angulo on 01/16/2025 4:25 PM 20 > Interpreting Provider: Swapnil Little MD on 01/16/2025 4:41 PM Narrative 01/16/2025 4:41 PM CDT 20 PROCEDURE: MRI PITUITARY ONLY WWO CONTR DATE/TIME OF EXAM: 01/16/2025 3:51 PM CLINICAL INFORMATION: Status post resection pituitary adenoma. Indication: E34.9: Endocrine disorder. Additional History: COMPARISON: 10/13/2022, 12/02/2020, 05/22/2019. TECHNIQUE: MRI of the pituitary was performed utilizing multiple pulse sequences in multiple planes with and without contrast. CONTRAST: GADOBENATE DIMEGLUMINE 529 MG/ML IV SOLN:20 mL. FINDINGS: Interval change in the area of the sella turcica. There is presently a T1 bright/T2 bright region within the sella projecting superiorly towards the suprasellar cistern. This area, medial-lateral, measures 16.3; superior-inferior 1.4; and anterior-posterior 1.7 cm. The size of the sella on 10/13/2022 was about 14 mm previously; now measuring 18 mm; suggesting that this is an expansile process. There is a fluid level in the mass, posterior dependent, possibly layering blood products versus layering protein content. The normal posterior pituitary bright spot is displaced to the left and superiorly with the pituitary stalk being displaced superiorly into the left. There is no mass effect upon the optic chiasm. Again, the mass is bright on T1. On dynamic imaging, there is marginal rim enhancement about the lesion suggesting that this is intracystic hemorrhage or intracystic high-protein fluid. One of the differential given previously was craniopharyngioma. Intracystic hemorrhage into the operative bed, Rathke's cyst, craniopharyngioma, are all in the differential. I cannot find pathology in [facility]. Therefore, recurrent previously identified tumor, such as was defined 05/22/2019 is the primary consideration. The craniocervical junction is normal. The corpus callosal volume, normal. There is normal flow void within the cavernous carotid arteries. Procedure Note Swapnil Little MD - 01/16/2025 20 PROCEDURE: MRI PITUITARY ONLY WWO CONTR DATE/TIME OF EXAM: 01/16/2025 3:51 PM CLINICAL INFORMATION: Status post resection pituitary adenoma. Indication: E34.9: Endocrine disorder. Additional History: COMPARISON: 10/13/2022, 12/02/2020, 05/22/2019. TECHNIQUE: MRI of the pituitary was performed utilizing multiple pulse sequences in multiple planes with and without contrast. CONTRAST: GADOBENATE DIMEGLUMINE 529 MG/ML IV SOLN:20 mL. FINDINGS: Interval change in the area of the sella turcica. There is presently aT1 bright/T2 bright region within the sella projecting superiorly towardsthe suprasellar cistern. This area, medial-lateral, measures 16.3; superior-inferior 1.4; and anterior-posterior 1.7 cm. The size of thesella on 10/13/2022 was about 14 mm previously; now measuring 18 mm; suggesting that this is an expansile process. There is a fluid level in the mass, posterior dependent, possibly layering blood products versus layering protein content. The normal posterior pituitary bright spot is displacedto the left and superiorly with the pituitary stalk being displacedsuperiorly into the left. There is no mass effect upon the optic chiasm. Again, the mass is bright on T1. On dynamic imaging, there is marginalrim enhancement about the lesion suggesting that this is intracystichemorrhage or intracystic high-protein fluid. One of the differential givenpreviously was craniopharyngioma. Intracystic hemorrhage into the operative bed, Rathke's cyst, craniopharyngioma, are all in the differential. I cannot find pathology in [facility]. Therefore, recurrent previouslyidentified tumor, such as was defined 05/22/2019 is the primary consideration. The craniocervical junction is normal. The corpus callosal volume,normal. There is normal flow void within the cavernous carotid arteries. IMPRESSION: Recurrent pituitary mass. No optic chiasm mass effect. No cavernoussinus invasion evident. Differential is primarily recurrence of the previously defined mass from 2019. Edited by Adore Angulo on 01/16/2025 4:25 PM 20 > Interpreting Provider: Swapnil Little MD on 01/16/2025 4:41 PM us Carlos Manuel Naik MD MR ORDERABLES Final Result * (ABNORMAL) BASIC METABOLIC PANEL (CALCIUM TOTAL) (10/11/2022 2:16 AM CDT) Glucose 109 70 - 125 mg/dL 10/11/2022 2:59 AM CDT [facility] Sodium 138 136 - 145 mmol/L 10/11/2022 2:59 AM CDT [facility] Potassium 3.6 3.4 - 5.1 mmol/L 10/11/2022 2:59 AM T [facility] Chloride 108(H) 98 - 107 mmol/L 10/11/2022 2:59 AM CDT [facility] CO2 22 22 - 29 mmol/L 10/11/2022 2:59 AM T [facility] Calcium 8.53 8.4 - 10.2 mg/dL 10/11/2022 2:59 AM T [facility] Anion Gap 12 6 - 16 mmol/L 10/11/2022 2:59 AM T [facility] BUN 13.0 8.4 - 25.7 mg/dL 10/11/2022 2:59 AM T [facility] Creatinine 1.14 0.72 - 1.25 mg/dL 10/11/2022 2:59 AM T [facility] eGFR 76(L) >90 mL/min/1.7 3m2 10/11/2022 2:59 AM T [facility] Comment:The GFR result was c alculated using the updated CKD-EPI Creatinine Equation (2020). Blood BLOOD SPECIMEN / Unknown Lab Venipuncture / Unknown 10/11/2022 2:16 AM CDT 10/11/2022 2:36 AM CDT Grey Purdy MD LAB - CHEMISTRY ORDERABLES Final Result Performing Organization Address [facility] de Phone Number [facility] [address] [place] [address] from Last 3 Months or Most Recently Relevant to Health Maintenance Insurance * Guarantor: Frederick Munson Account Type Relation to Patient Date of Phone Billing Address Personal/Family [address] [facility] [place] [address] [employer] Member Subscriber Plan / Payer (Ef fective 2024-Present) Name:Frederick Munson Member ID:Not on file Relation to Subscriber:Employee Name:[employer] (Work) Address: [address] [id number] Payer ID:Not on file Group ID:Not on file Type:Worker's Comp Address: [address] [address] [place] [address] * Guarantor: Frederick Munson Account Type Relation to Patient Date of Phone Billing Address Personal/Family 1965 [address] [place] [address] Advance Directives * Full Code (Latest Code [...] 7:14 AM 09/08/2016 8:33 AM Care Teams Cylindrical Mixer Relationship Specialty Start Date End Date Darrel Caballero MD [address] [phone] PCP - General Internal Medicine 07/10/14 Genny Kent DO [address] [phone] Fellow Internal Medicine 06/25/19
[2025-03-16 11:15] LABS: Cortisol 60 Minute 17.20 ug/dL
== END 2025-03-16 08:47 | disposition home or self-care (01) ==
LOC: ANHLAB 08:49
PROVIDERS: Visit Provider Internal Medicine
DX: D35.2 Benign neoplasm of pituitary gland (principal); E29.1 Testicular hypofunction; E03.8 Other specified hypothyroidism; E07.9 Disorder of thyroid, unspecified; E34.9 Endocrine disorder, unspecified
CPT/HCPCS: 36415; 82533; 96372; J0834